=== PATIENT | female | born 1995 | race Hispanic/Latino ===

== ENCOUNTER 2020-08-29 19:04 | Emergency (ER) | payer MEDICAID ==
[~2020-08-29] VITALS: Ht 162.6 cm; Wt 57.2 kg
[2020-08-29 19:09] VITALS: BP 143/92
[2020-08-29 21:31] VITALS: BP 126/74
== END 2020-08-29 21:35 | disposition home or self-care (01) ==
LOC: EDH 19:04
DX: J06.9 Acute upper respiratory infection, unspecified (principal); Z20.822 Contact with and (suspected) exposure to COVID-19
CPT/HCPCS: 87426; 87635; 87804

== ENCOUNTER 2020-12-25 20:02 | Emergency (ER) | payer MEDICAID ==
[~2020-12-25] VITALS: Ht 160 cm; Wt 59.9 kg
[2020-12-25 20:49] LABS: BASOPHILS % (AUTO) 0.4 % (0.0-5.0); EOSINOPHILS % (AUTO) 0.7 % (0.0-8.0); HEMATOCRIT 31.9 % (36-48); LYMPHOCYTES % (AUTO) 18.6 % (21.0-51.0); MEAN CORPUSCULAR HEMOGLOBIN 29.8 pg (27.0-33.0); MEAN CORPUSCULAR HGB CONC 34.8 g/dL (32.0-36.0); MEAN CORPUSCULAR VOLUME 85.8 fL (79-99); MONOCYTES % (AUTO) 8.6 % (3.0-13.0); NEUTROPHILS % (AUTO) 71.2 % (40.0-77.0); PLATELET COUNT (AUTO) 171 K/uL (130-400); RED BLOOD CELL COUNT(AUTO) 3.72 MIL/uL (4.00-5.50); RED CELL DISTRIBUTION WIDTH 12.5 % (11.0-15.5); WHITE BLOOD COUNT (AUTO) 9.2 K/uL (4.8-10.8)
[2020-12-25 21:01] LABS: CREATININE 0.4 mg/dL (0.5-1.5); POTASSIUM 3.4 mmol/L (3.5-5.1)
[2020-12-25 23:06] VITALS: BP 130/76
== END 2020-12-25 23:05 | disposition home or self-care (01) ==
LOC: EEVIPCON 20:02 → EDH 20:02
DX: O20.0 Threatened abortion (principal); Z3A.19 19 weeks gestation of pregnancy
CPT/HCPCS: 36415; 76805; 80048; 85025; 86850; 86900; 86901

== ENCOUNTER 2021-05-15 00:38 | Emergency (ER) | payer MEDICAID ==
[~2021-05-15] VITALS: Ht 160 cm; Wt 67.1 kg
[2021-05-15 02:22] LABS: BASOPHILS % (AUTO) 0.7 % (0.0-5.0); EOSINOPHILS % (AUTO) 2.1 % (0.0-8.0); HEMATOCRIT 30.5 % (36-48); MEAN CORPUSCULAR HEMOGLOBIN 27.7 pg (27.0-33.0); MEAN CORPUSCULAR HGB CONC 32.8 g/dL (32.0-36.0); MEAN CORPUSCULAR VOLUME 84.5 fL (79-99); MONOCYTES % (AUTO) 10.3 % (3.0-13.0); NEUTROPHILS % (AUTO) 62.4 % (40.0-77.0); PLATELET COUNT (AUTO) 179 K/uL (130-400); RED BLOOD CELL COUNT(AUTO) 3.61 MIL/uL (4.00-5.50); RED CELL DISTRIBUTION WIDTH 15.2 % (11.0-15.5); WHITE BLOOD COUNT (AUTO) 7.5 K/uL (4.8-10.8)
[2021-05-15 02:34] LABS: INR 0.91 (0.85-1.15)
[2021-05-15 02:36] LABS: PARTIAL THROMBOPLASTIN TIME 26.3 SEC (26.3-35.5)
[2021-05-15 03:42] VITALS: BP 132/74
== END 2021-05-15 03:42 | disposition home or self-care (01) ==
LOC: EDH 00:38
DX: O72.1 Other immediate postpartum hemorrhage (principal)
CPT/HCPCS: 36415; 76856; 85025; 85610; 85730

== ENCOUNTER 2022-09-02 17:29 | Emergency (ER) | payer MEDICAID ==
[~2022-09-02] VITALS: Ht 162.6 cm; Wt 68.0 kg
[2022-09-02 18:07] LABS: BASOPHILS % (AUTO) 0.7 % (0.0-5.0); EOSINOPHILS % (AUTO) 1.6 % (0.0-8.0); HEMATOCRIT 36.3 % (36-48); MEAN CORPUSCULAR HEMOGLOBIN 26.6 pg (27.0-33.0); MEAN CORPUSCULAR HGB CONC 32.2 g/dL (32.0-36.0); MEAN CORPUSCULAR VOLUME 82.5 fL (79-99); MONOCYTES % (AUTO) 10.6 % (3.0-13.0); NEUTROPHILS % (AUTO) 61.9 % (40.0-77.0); PLATELET COUNT (AUTO) 212 K/uL (130-400); RED CELL DISTRIBUTION WIDTH 13.8 % (11.0-15.5); WHITE BLOOD COUNT (AUTO) 5.6 K/uL (4.8-10.8)
[2022-09-02 18:08] LABS: APPEARANCE,URINE CLEAR (CLEAR); BILIRUBIN,URINE NEGATIVE (NEGATIVE); COLOR,URINE LIGHT-YELLOW (YELLOW); GLUCOSE, URINE (UA) NEGATIVE (NEGATIVE); KETONES,URINE NEGATIVE (NEGATIVE); LEUKOCYTE ESTERASE ,URINE 25 Leu/uL (NEGATIVE); NITRATE,URINE NEGATIVE (NEGATIVE); OCCULT BLOOD,URINE NEGATIVE (NEGATIVE); PH,URINE 7.5 (5.0-8.0); PROTEIN,URINE NEGATIVE (NEGATIVE)
[2022-09-02 18:13] LABS: HCG,QUALITATIVE URINE NEGATIVE (NEGATIVE)
[2022-09-02 18:15] LABS: BACTERIA,URINE RARE /HPF (None Seen); SQUAMOUS EPITHELIAL CELL,UR MOD /HPF (0-2)
[2022-09-02 18:59] VITALS: BP 114/77
[2022-09-02 20:18] LABS: CREATININE 0.5 mg/dL (0.5-1.5)
[2022-09-02 20:22] LABS: ALBUMIN 4.3 g/dL (3.5-5.0); TOTAL PROTEIN, SERUM 7.7 g/dL (6.0-8.3)
== END 2022-09-02 20:49 | disposition home or self-care (01) ==
LOC: EDH 17:29
DX: R10.31 Right lower quadrant pain (principal)
CPT/HCPCS: 36415; 71045; 76705; 80053; 81001; 81025; 83690; 84484; 85025; 85378; 87088; 93005

== ENCOUNTER 2023-05-09 18:12 | Emergency (ER) | payer BC, MEDICAID ==
[~2023-05-09] VITALS: Ht 162.6 cm; Wt 56.7 kg
[2023-05-09 18:41] LABS: BASOPHILS # (AUTO) 0.02 K/uL (0.00-0.20); BASOPHILS % (AUTO) 0.5 % (0.0-5.0); EOSINOPHILS # (AUTO) 0.12 K/uL (0.00-0.70); EOSINOPHILS % (AUTO) 3.2 % (0.0-8.0); HEMATOCRIT 35.9 % (36-48); IMMATURE GRANULOCYTE ABSOLUTE 0.01 K/uL (0-1); LYMPHOCYTES # (AUTO) 1.4 K/uL (1.0-4.8); LYMPHOCYTES % (AUTO) 36.4 % (21.0-51.0); MEAN CORPUSCULAR HEMOGLOBIN 28.1 pg (27.0-33.0); MEAN CORPUSCULAR HGB CONC 33.4 g/dL (32.0-36.0); MEAN CORPUSCULAR VOLUME 84.1 fL (79-99); MONOCYTES # (AUTO) 0.6 K/uL (0.1-1.0); MONOCYTES % (AUTO) 15.4 % (3.0-13.0); NEUTROPHILS # (AUTO) 1.7 K/uL (1.8-7.7); NEUTROPHILS % (AUTO) 44.2 % (40.0-77.0); PLATELET COUNT (AUTO) 173 K/uL (130-400); RED BLOOD CELL COUNT(AUTO) 4.27 MIL/uL (4.00-5.50); RED CELL DISTRIBUTION WIDTH 13.7 % (11.0-15.5); WHITE BLOOD COUNT (AUTO) 3.8 K/uL (4.8-10.8)
[2023-05-09 18:51] VITALS: O2SAT 98
[2023-05-09 18:53] LABS: INR 1.06 (0.85-1.15); PROTHROMBIN TIME 12.2 SEC (9.6-11.6)
[2023-05-09 18:54] LABS: CREATININE 0.6 mg/dL (0.5-1.5); PARTIAL THROMBOPLASTIN TIME 36.1 SEC (26.3-35.5); POTASSIUM 3.5 mmol/L (3.5-5.1)
[2023-05-09 19:00] LABS: ALBUMIN 4.2 g/dL (3.5-5.0); BILIRUBIN,TOTAL 0.3 mg/dL (0.2-1.0); TOTAL PROTEIN, SERUM 7.6 g/dL (6.0-8.3)
[2023-05-09 19:55] LABS: B-TYPE NATRIURETIC PEPTIDE 19 pg/mL (0-100)
[2023-05-09 21:20] VITALS: BP 125/74; PULSE 78; RESP 18
== END 2023-05-09 21:20 | disposition home or self-care (01) ==
LOC: EDH 18:12
DX: Z00.00 Encounter for general adult medical examination without abnormal findings (principal); R07.89 Other chest pain; Z98.890 Other specified postprocedural states
CPT/HCPCS: 36415; 71045; 80053; 82550; 83880; 84484; 85025; 85378; 85610; 85730; 93005

== ENCOUNTER 2024-02-13 09:47 | Emergency (ER) | payer BC ==
[~2024-02-13] VITALS: Ht 162.6 cm; Wt 56.7 kg
[2024-02-13] MEDS: DiphenhydrAMINE HCL 50 MG/ML VIAL IV ONE (10:08)
[2024-02-13] MEDS: 0.9%NACL 1000ML 1,000 ML IV ONE (10:08)
[2024-02-13] MEDS: acetaMINOPHEN 500 MG TABLET PO ONE (10:08)
--- NOTE | 2024-02-13 10:25 | HMCIMG ---
US VENOUS DOPPLER UNILATERAL REASON: LLE PAIN COMPARISON: None Technique: Left venous doppler ultrasound was performed with spectral analysis and color flow imaging technique. FINDINGS: There is a normal appearance of the common femoral, deep femoral, the profunda femoris and popliteal veins. Proximal calf veins appear normal as well. There is normal response to compression and augmentation. There is no evidence of deep venous thrombosis. IMPRESSION: Normal left lower extremity venous Doppler ultrasound.
[2024-02-13 10:29] LABS: BASOPHILS # (AUTO) 0.03 K/uL (0.00-0.20); BASOPHILS % (AUTO) 0.6 % (0.0-5.0); EOSINOPHILS # (AUTO) 0.15 K/uL (0.00-0.70); EOSINOPHILS % (AUTO) 3.2 % (0.0-8.0); HEMATOCRIT 39.6 % (36-48); IMMATURE GRANULOCYTE ABSOLUTE 0.01 K/uL (0-1); LYMPHOCYTES # (AUTO) 1.7 K/uL (1.0-4.8); LYMPHOCYTES % (AUTO) 36.9 % (21.0-51.0); MEAN CORPUSCULAR HEMOGLOBIN 27.7 pg (27.0-33.0); MEAN CORPUSCULAR HGB CONC 32.8 g/dL (32.0-36.0); MEAN CORPUSCULAR VOLUME 84.4 fL (79-99); MONOCYTES # (AUTO) 0.4 K/uL (0.1-1.0); MONOCYTES % (AUTO) 8.1 % (3.0-13.0); NEUTROPHILS # (AUTO) 2.4 K/uL (1.8-7.7); PLATELET COUNT (AUTO) 197 K/uL (130-400); RED BLOOD CELL COUNT(AUTO) 4.69 MIL/uL (4.00-5.50); RED CELL DISTRIBUTION WIDTH 13.1 % (11.0-15.5); WHITE BLOOD COUNT (AUTO) 4.7 K/uL (4.8-10.8)
[2024-02-13 10:39] LABS: CREATININE 0.6 mg/dL (0.5-1.0); POTASSIUM 3.7 mmol/L (3.5-5.1)
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
[2024-02-13 11:16] VITALS: BP 122/69; PULSE 68; RESP 18; TEMP 98.2; O2SAT 99
== END 2024-02-13 11:45 | disposition home or self-care (01) ==
LOC: EDH 09:47
DX: G44.209 Tension-type headache, unspecified, not intractable (principal); F41.9 Anxiety disorder, unspecified; M54.32 Sciatica, left side; M79.605 Pain in left leg; Z86.718 Personal history of other venous thrombosis and embolism
CPT/HCPCS: 99284; 96374; 93971; 96361; 82550; 80048; 85025; 81025; 36415; J1200; J7030

== ENCOUNTER 2024-10-12 19:11 | Emergency (ER) | payer BC ==
[~2024-10-12] VITALS: Ht 160 cm; Wt 54.9 kg
[2024-10-12 20:56] LABS: IMMATURE GRANULOCYTE ABSOLUTE 0.02 K/uL (0-1); NUCLEATED RED BLOOD CELLS 0.0 % (0.0-0.19); PLATELET COUNT (AUTO) 218 K/uL (130-400); RED BLOOD CELL COUNT(AUTO) 4.55 MIL/uL (4.00-5.50); RED CELL DISTRIBUTION WIDTH 12.9 % (11.0-15.5); WHITE BLOOD COUNT (AUTO) 6.4 K/uL (4.8-10.8)
[2024-10-12 21:00] LABS: HCG,QUALITATIVE URINE NEGATIVE (NEGATIVE)
[2024-10-12 21:03] LABS: APPEARANCE,URINE HAZY (CLEAR); GLUCOSE, URINE (UA) NEGATIVE (NEGATIVE); LEUKOCYTE ESTERASE ,URINE 500 Leu/uL (NEGATIVE); NITRATE,URINE NEGATIVE (NEGATIVE); OCCULT BLOOD,URINE +- (TRACE) (NEGATIVE); SQUAMOUS EPITHELIAL CELL,UR MANY /HPF (0-2)
[2024-10-12 21:07] LABS: CREATININE 0.5 mg/dL (0.5-1.0); GLOMERULAR FILTR. RATE CALC 133.0 mL/min (>90); GLUCOSE,RANDOM 97.0 mg/dL (70-105); SODIUM SERUM 140.0 mmol/L (136-145); UREA NITROGEN, BLOOD 15.0 mg/dL (7-18)
--- NOTE | 2024-10-12 22:19 | HMCIMG ---
EXAM: CR Chest, 1 view CLINICAL HISTORY: Shortness of breath. Chest pain. COMPARISON: Chest radiograph dated 05/09/2023. FINDINGS: The lungs show no infiltrates or other acute findings. No pleural effusion or pneumothorax. The cardiomediastinal silhouette is within normal limits. No acute osseous abnormality. IMPRESSION: No acute cardiopulmonary process is evident. No interval changes. /[place]
[2024-10-12] MEDS ORDERED: CEPH500T PO (23:08)
--- NOTE | 2024-10-12 23:08 | ERN ---
General Chief Complaint: Shortness of Breath Stated Complaint: CHEST PAIN, SOB Time Seen by MD: 20:01 Time Seen by Midlevel: 20:01 Source: patient History of Present Illness Initial Comments 28 y/o female presents to the ED due to SOB onset 2 days. States shes having upper back pain, fatigue, and CP. Denies nausea, vomiting, abdominal pain, or further associated symptoms. PMHx of lupus Allergies: Coded Allergies: No Known Allergies (Unverified Allergy, Unknown, 07/19/22) No Known Drug Allergies (Unverified Allergy, Unknown, 12/25/20) Home Meds Active Scripts Cephalexin (Cephalexin) 500 Mg Tablet, 1 TAB PO BID for 7 Days, #14 TAB 0 Refills Prov:SHAWN PIEDRA 10/12/24 Past Medical History Past Medical History: Other Medical History Other: HX OF LUPUS; HX OF BLOOD CLOTS Past Surgical History: None Family History Family History: Negative Social History Social History: Lives alone, Other Female( History) LMP: Oct 05, 2024 : 2 Para: 0 Aborts: 0 ROS Dictation Constitutional: Positive for fatigue Negative for fever,chills, and weight loss Eyes: Negative for injury, pain,redness, and discharge ENT: Negative for injury,pain or swelling Cardiovascular: Positive for chest pain Negative for palpitations, and edema Respiratory:Positive for SOB Negative for cough, and wheezing, Abdomen/GI: Negative for abdominal pain, nausea, vomiting, diarrhea, and constipation Back: Positive for upper back pain Negative for injury and pain : Negative for painful urination, bleeding or discharge MS/Extremity: Negative for injury and deformity Skin: Negative for rash, and discoloration Neuro: Negative for headache, weakness, numbness, tingling, and seizure Psych: Negative for suicide ideation, homicidal ideation, and hallucinations Physical Exam Physical Exam Dictation General: awake, alert, no acute distress Head/Face: Normocephalic, atraumatic Eyes: PERRL, EOMI, normal conjunctiva ENT: oral cavity clear, oral mucosa moist Neck: Supple, normal range of motion Cardiovascular: RRR, normal S1/S2 Respiratory: CTAB, no respiratory distress, no rales or wheezes Abdomen: Soft, non-tender, non-distended Skin: Warm, dry, normal turgor, no rash MS/Extremity: Pulses equal, no cyanosis, neurovascular intact, FROM Neuro: COAx4, GCS 15, no neurological deficits, normal gait Psych: Normal behavior, mood, and affect normal Results Laboratory and Microbiology Lab and Micro Result Laboratory Tests Test 10/12/24 20:34 10/12/24 20:48 Sodium Level 140 mmol/L (136-145) Potassium Level 3.7 mmol/L (3.5-5.1) Chloride Level 102 mmol/L (101-111) Carbon Dioxide Level 28 mmol/L (21-32) Blood Urea Nitrogen 15 mg/dL (7-18) Creatinine 0.5 mg/dL (0.5-1.0) Glomerular Filtration Rate Calc 133 mL/min (>90) Random Glucose 97 mg/dL (70-105) Total Calcium 9.7 mg/dL (8.5-10.1) White Blood Count 6.4 K/uL (4.8-10.8) Red Blood Count 4.55 MIL/uL (4.00-5.50) Hemoglobin 13.1 g/dL (12.0-16.0) Hematocrit 38.8 % (36-48) Mean Corpuscular Volume 85.3 fL (79-99) Mean Corpuscular Hemoglobin 28.8 pg (27.0-33.0) Mean Corpuscular Hemoglobin Concent 33.8 g/dL (32.0-36.0) Red Cell Distribution Width 12.9 % (11.0-15.5) Platelet Count 218 K/uL (130-400) Mean Platelet Volume 10.7 fL (7.5-10.5) H Immature Granulocyte % (Auto) 0.3 % (0-1) Neutrophils (%) (Auto) 53.0 % (40.0-77.0) Lymphocytes (%) (Auto) 37.0 % (21.0-51.0) Monocytes (%) (Auto) 7.5 % (3.0-13.0) Eosinophils (%) (Auto) 1.4 % (0.0-8.0) Basophils (%) (Auto) 0.8 % (0.0-5.0) Neutrophils # (Auto) 3.4 K/uL (1.8-7.7) Lymphocytes # (Auto) 2.4 K/uL (1.0-4.8) Monocytes # (Auto) 0.5 K/uL (0.1-1.0) Eosinophils # (Auto) 0.09 K/uL (0.00-0.70) Basophils # (Auto) 0.05 K/uL (0.00-0.20) Absolute Immature Granulocyte (auto 0.02 K/uL (0-1) Nucleated Red Blood Cells 0.0 % (0.0-0.19) Urine Color LIGHT-YELLOW (YELLOW) Urine Appearance HAZY (CLEAR) Urine pH 7.0 (5.0-8.0) Urine Specific [place] 1.014 (1.001-1.031) Urine Protein NEGATIVE mg/dL (NEGATIVE) Urine Glucose (UA) NEGATIVE mg/dL (NEGATIVE) Urine Ketones NEGATIVE mg/dL (NEGATIVE) Urine Occult Blood +- (TRACE) (NEGATIVE) H Urine Nitrate NEGATIVE (NEGATIVE) Urine Bilirubin NEGATIVE mg/dL (NEGATIVE) Urine Urobilinogen 0.2 mg/dL (0.2-1.0) Urine Leukocyte Esterase 500 [place]/uL (NEGATIVE) H Urine RBC 2-5 /HPF (0-1) H Urine WBC 11-25 /HPF (0-1) H Urine Squamous Epithelial Cells MANY /HPF (0-2) Urine Amorphous Crystals (Auto) RARE /LPF (None Seen) Urine Bacteria FEW /HPF (None Seen) Urine HCG, Qualitative NEGATIVE (NEGATIVE) Troponin I High Sensitivity < 4 ng/L (4-50) L Labs Reviewed?: Yes EKG/XRAY/US/CT/MRI EKG Comment Date: 10/12/2024 Time: 2037 Rate: 59 EKG interpretation: Sinus rhythm, no STEMI Reviewed by ED Attending X-RAY Comment REASON: ROBE, CP ORDERING PHYSICIAN: SHAWN PIEDRA PROCEDURE: CXR1VW - CHEST 1VW EXAM: CR Chest, 1 view CLINICAL HISTORY: Shortness of breath. Chest pain. COMPARISON: Chest radiograph dated 05/09/2023. FINDINGS: The lungs show no infiltrates or other acute findings. No pleural effusion or pneumothorax. The cardiomediastinal silhouette is within normal limits. No acute osseous abnormality. IMPRESSION: No acute cardiopulmonary process is evident. No interval changes. /[place] DICTATED BY: HANS ASHLEY Jr., MD DATE: 10/12/24 [address] [place] MDM: Differential diagnosis: ACS, dehydration, electrolyte imbalance, [place] Rationale: 28 y/o female presents to the ED due to SOB onset 2 days. States shes having upper back pain, fatigue, and CP. Denies nausea, vomiting, abdominal pain, or further associated symptoms. PMHx of lupus Per physical examination patient is in no acute distress, nonlabored breathing, appears comfortable and talkative while waiting in the ED. Per physical examination CBC and chemistry are within normal limits. Troponin within normal limits. UA indicates a urinary tract infection with 500 leukocyte esterase and 11-25 WBCs. Chest x-ray obtained indicates no acute cardiopulmonary process. PERC Rule negative. Rocephin and ketorolac administered in the ED. Vital signs within normal limits during ED course. On re-examination patient verbalized she was feeling better. Patient was educated on findings and diagnosis. Advised to follow up with PCP. Return to the emergency department if any worsening symptoms. Patient verbalized understanding. Patient stable for discharge. There are no social concerns with this patient. I independently interpreted the test that were performed, results were reviewed by me and considered findings on radiology if ordered. Medical management and examination interpretation discussions were had by me with other qualified healthcare professionals as indicated for the patient's care. ED Course Orders Procedure Category Date Status Time Cbc With Differential LAB 10/12/24 Complete 20:34 Basic Metabolic Panel LAB 10/12/24 Complete 20:34 Urinalysis LAB 10/12/24 Complete W/Microscopic 20:34 ,Urine Test LAB 10/12/24 Complete 20:34 Troponin I High LAB 10/12/24 Complete Sensitivity 20:34 12 Lead Ekg Tracing- EKG 10/12/24 Complete Technical 20:34 Chest 1vw RAD 10/12/24 Resulted 20:34 Culture Urine BEN 10/12/24 In Process 21:03 Ketorolac PHA 10/12/24 Complete Tromethamine 15mg/Ml 22:00 Ceftriaxone 1g Vial PHA 10/12/24 Complete (Rocephine 1g Inj) 22:00 Current Medications Medications (Trade) Dose Ordered Sig/Keesha Route PRN Reason Start Time Stop Time Status Last Admin Dose Admin Ceftriaxone Sodium (ROCEphine 1G INJ) 1 gm ONCE ONCE IM 10/12/24 22:00 10/12/24 22:01 DC 10/12/24 22:24 Ketorolac Tromethamine (toRADol) 15 mg ONCE ONCE IM 10/12/24 22:00 10/12/24 22:01 DC 10/12/24 22:31 Vital Signs Date Time Temp Pulse Resp B/P (MAP) Pulse Ox O2 Delivery O2 Flow Rate FiO2 10/12/24 23:14 98.4 84 16 128/79 97 Room Air* 0 21 10/12/24 22:20 98.4 96 20 149/86 100 Room Air* 0 21 10/12/24 20:29 99.5 96 20 149/86 100 Room Air DX & DISP Disposition: Discharge Departure Impression: Primary Impression: UTI (urinary tract infection) Additional Impression: Chest pain with low risk for cardiac etiology Condition: Stable Scripts Cephalexin (Cephalexin) 500 Mg Tablet 1 TAB PO BID for 7 Days, #14 TAB 0 Refills Prov: SHAWN PIEDRA 10/12/24 Additional Instructions: Discharge home. Rest. Follow up with primary care DrRehan in 24 hours. Return to the ER for any acute changes or worsening symptoms. If any medications were prescribed take as directed. Okay to continue home medications unless otherwise discussed during your visit in the emergency room today. Patient was also advised to follow-up with primary care physician in 1 to 2 days for continued monitoring. Referrals: ROCHELLE MCGILL MD (PCP) I performed the substantive portion of the visit. I have reviewed and personally made and approve the management plan that is documented in the notes by myself or the JAIRO. I acknowledge full responsibility for the patient's management plan. SHAWN PIEDRA Oct 12, 2024 23:08
[2024-10-12 23:14] VITALS: BP 128/79; PULSE 84; RESP 16; TEMP 98.4; O2SAT 97
--- NOTE | 2024-10-13 07:22 | EKG ---
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
== END 2024-10-12 23:14 | disposition home or self-care (01) ==
LOC: EDH 19:11
DX: N39.0 Urinary tract infection, site not specified (principal); R07.89 Other chest pain; Z86.718 Personal history of other venous thrombosis and embolism
CPT/HCPCS: 99284; 71045; 84484; 80048; 85025; 87086; 81001; 81025; 36415; 96372 ×2; 93005; J1885; J0696